=== PATIENT | male | born 1985 ===

== ENCOUNTER 2025-03-11 10:22 | Outpatient (REF) | payer BC, SELFPAY ==
[2025-03-11 18:16] LABS: ALT 45 U/L (16-63); AST 31 U/L (15-37); Albumin 3.6 g/dL (3.4-5.0); Alkaline Phosphatase 66 U/L (46-116); Anion Gap 7.5 mmol/L (3-11); BUN 14 mg/dL (7-18); Bilirubin, Total 0.8 mg/dL (0.2-1.0); CO2 28.5 mmol/L (21.0-32.0); Calcium 8.9 mg/dL (8.5-10.1); Calculated LDL 136 mg/dL (<100); Chloride 105 mmol/L (98-107); Cholesterol 185 mg/dL (<200); Estimated GFR 115.45 (mL/min/1.73m2); Glucose 120 mg/dL (74-106); HDL Cholesterol 37 mg/dL (>or=40); Potassium 4.4 mmol/L (3.5-5.1); Sodium 141 mmol/L (136-145); TSH (W/Ref FT4) 2.13 uIU/mL (0.36-3.74); Total Protein 7.9 g/dL (6.4-8.2); Triglyceride 63 mg/dL (<150); Vitamin D 25 Total 28 ng/mL (30-100)
== END 2025-03-11 10:23 | disposition home or self-care (01) ==
LOC: NCHCN 10:22
PROVIDERS: Visit Provider Physician Assistant
DX: E78.00 Pure hypercholesterolemia, unspecified (principal); Z83.49 Family history of other endocrine, nutritional and metabolic diseases; E55.9 Vitamin D deficiency, unspecified; K76.0 Fatty (change of) liver, not elsewhere classified
CPT/HCPCS: 80053; 80061; 82306; 85027; 84443